=== PATIENT | female | born 1975 | race Caucasian/White ===

== ENCOUNTER 2017-01-26 10:36 | Emergency (ER) | payer BC ==
--- NOTE | 2017-01-26 10:48 | Emergency Department Record ---
History of Present Illness - General Chief complaint: Allergic Reaction Stated complaint: CHEST RIGHT FROM BEE STING Time Seen by Provider: 01/26/17 10:43 Source: Patient Mode of Arrival: Ambulatory Limitations: No limitations - History of Present Illness Initial Comments: 41 yo female presents after a bee sting last night and again this morning. She was stung on the back last night without any symptoms. This morning she was stung on the foot. She initially felt short of breath and dizzy. She took her Albuterol. She is not feeling much better. No swelling, no hives, no current shortness of breath. 15 years ago she was stung more than 100 times and had anaphylaxis. No recurrent anaphylaxis since then. She has asthma that is mild and controlled. MD Complaint: Allergic reaction -: Hour(s) Exposure: Insect bite Symptoms: Difficulty breathing Severity: Moderate Treatment Prior to Arrival: Bronchodilator Previous Allergy History: Anaphylaxis (15 years ago stung > 100 X's) - Related Data Home Medications Medication Instructions Recorded Confirmed Last Taken Levothyroxine Sodium 88 mcg PO DAILY 05/25/15 01/26/17 1 Day Ago ~01/25/17 Alprazolam [Xanax] 0.25 mg PO ASDIR 01/26/17 01/26/17 1 Day Ago ~01/25/17 Bupropion HCl [Wellbutrin Xl] 300 mg PO DAILY 01/26/17 01/26/17 1 Day Ago ~01/25/17 Previous Rx's Medication Instructions Recorded Epinephrine [Epipen] 0.3 mg IM ASDIR PRN #2 syr 01/26/17 Prednisone [Prednisone 20Mg] 20 mg PO DAILY #10 tab 01/26/17 Allergies Allergy/AdvReac Type Severity Reaction Status Date / Time shellfish derived Allergy Intermediate VOMITING Verified 01/26/17 10:47 bee venom protein (honey bee) Allergy ANAPHYLAXIS Verified 01/26/17 10:47 Review of Systems Constitutional: Denies: Chills, Fever, Malaise, Weakness Eyes: Denies: Eye discharge, Eye pain, Photophobia, Vision change ENT: Denies: Congestion, Throat pain Respiratory: Reports: As per HPI, Dyspnea Cardiovascular: Reports: As per HPI, Chest pain (initially tight, resolved). Denies: Palpitations, Syncope Endocrine: Denies: Fatigue Gastrointestinal: Denies: Abdominal pain, Diarrhea, Nausea, Vomiting Genitourinary: Denies: Dysuria, Urgency Musculoskeletal: Denies: Arthralgia, Back pain, Joint swelling, Myalgia Skin: Denies: Bruising, Change in color, Lesions, Pruritus, Rash Neurological: Denies: Headache Psychiatric: Denies: Anxiety Hematological/Lymphatic: Denies: Blood Clots, Easy bleeding, Easy bruising, Swollen glands Past Medical History - SOCIAL HISTORY Smoking Status: Never smoker - RESPIRATORY Hx Respiratory Disorders: Yes Hx Asthma: Yes - CARDIOVASCULAR Hx Cardio Disorders: No - NEURO Hx Neuro Disorders: No - GI Hx GI Disorders: No - Hx Genitourinary Disorders: No - ENDOCRINE Hx Endocrine Disorders: Yes Hx Thyroid Disease: Yes (hypo) - MUSCULOSKELETAL Hx Musculoskeletal Disorders: No - PSYCH Hx Psych Problems: No - HEMATOLOGY/ONCOLOGY Hx Hematology/Oncology Disorders: No Physical Exam - General General Appearance: Alert, Oriented x3, Cooperative, No acute distress, Other ( Appears comfortable, no acute distress) Limitations: No limitations - Head Head exam: Normal inspection - Eye Eye exam: Normal appearance, PERRL. negative: Conjunctival injection, Periorbital swelling - ENT ENT exam: Normal exam, Mucous membranes moist, Normal external ear exam, Normal orophraynx Ear exam: Normal external inspection. negative: External canal tenderness Nasal Exam: Normal inspection. negative: Discharge, Sinus tenderness Mouth exam: Normal external inspection, Tongue normal. negative: Muffled voice , Tongue elevation Teeth exam: Normal inspection. negative: Dental caries Throat exam: Normal inspection. negative: Tonsillar erythema, Tonsillomegaly, Tonsillar exudate, R peritonsillar mass, L peritonsillar mass - Neck Neck exam: Normal inspection, Full ROM. negative: Lymphadenopathy, Tenderness - Respiratory Respiratory exam: Normal lung sounds bilaterally, Other (calm respirations). negative: Accessory muscle use, Decreased breath sounds, Prolonged expiratory, Respiratory distress, Rhonchi, Stridor, Wheezes - Cardiovascular Cardiovascular Exam: Regular rate, Normal rhythm, Normal heart sounds Peripheral Pulses: 2+: Radial (R), Radial (L) - Rectal Rectal exam: Deferred - exam: Deferred - Extremities Extremities exam: Normal inspection, Full ROM, Normal capillary refill. negative: Tenderness - Back Back exam: Reports: Normal inspection, Full ROM. Denies: Muscle spasm, Rash noted, Tenderness - Neurological Neurological exam: Alert, Normal gait, Oriented X3, Reflexes normal - Psychiatric Psychiatric exam: Normal affect, Normal mood - Skin Skin exam: Dry, Intact, Normal color, Warm. negative: Cyanosis, Diaphoretic, Erythema, Mottled, Pallor, Urticaria Course - Reevaluation(s) Reevaluation #1: Vitals reviewed No acute changes She is well appearing showing no signs of significant reaction She will be treated given her prior significant past medical history 01/26/17 10:48 Reevaluation #2: The patient continues to do very well We discussed home care and reasons to return as well as close follow up 01/26/17 11:56 Disposition Disposition: Discharge Clinical Impression: Bee sting reaction Qualifiers: Encounter type: initial encounter Disposition: Home, Self-Care Condition: (1) Good Instructions: Epinephrine (By injection), Insect Bite or Sting (ED) Additional Instructions: Return if you have shortness of breath, swelling, trouble breathing Fill the Epipens and discuss use with your doctor You will use it if stung with swelling, short of breath If used then come to the ER for evaluation You will take the Prednisone twice daily starting tomorrow Take Benadryl every 4-6 hours today. It causes drowsiness. Prescriptions: Epinephrine [Epipen] 0.3 mg IM ASDIR PRN #2 syr PRN Reason: Anaphylaxis Prednisone [Prednisone 20Mg] 20 mg PO DAILY #10 tab Forms: Patient Portal Access Time of Disposition: 11:58 Quality - Quality Measures Quality Measures: N/A - Blood Pressure Screening View Details: Yes Blood Pressure Classification: Hypertensive Reading Systolic Measurement: 144 Diastolic Measurement: 107 Screening for High Blood Pressure: < Pre-Hypertensive BP, F/U Documented > [ [id number]] Pre-Hypertensive Follow-up Interventions: Referral to alternative/primary care provider.
[2017-01-26] MEDS: DIPHENHYDRAMINE HCL 25 MG CAPSULE PO ONE (10:51)
[2017-01-26] MEDS: PREDNISONE 20 MG TAB PO ONE (10:51)
== END 2017-01-26 12:03 | disposition home or self-care (01) ==
LOC: ER 10:36
DX: T63.441A Toxic effect of venom of bees, accidental (unintentional), initial encounter (principal); R07.89 Other chest pain; R06.02 Shortness of breath; R42 Dizziness and giddiness; Z87.892 Personal history of anaphylaxis
CPT/HCPCS: 99283 ×2; J7512